=== PATIENT | male | born 1970 | race African-American/Black ===

== ENCOUNTER 2024-03-07 15:06 | Inpatient (IN) | payer OTHER ==
[2024-03-07 16:47] VITALS: BMI 23.8
[2024-03-07] MEDS ORDERED: guaiFENesin 600 MG TABLET.ER (FP) PO PRN (18:52)
[2024-03-07] MEDS ORDERED: LOPERAMIDE HCL 2 MG CAPSULE PO PRN (18:52)
[2024-03-07] MEDS ORDERED: hydrOXYzine PAMOATE 25 MG CAPSULE (FP) PO PRN (18:52)
[2024-03-07] MEDS ORDERED: MAG HYDROX/AL HYDROX/SIMETH 30 ML UNIT-DOSE CUP PO PRN (18:52)
[2024-03-07] MEDS ORDERED: DICYCLOMINE HCL 10 MG CAPSULE PO PRN (18:52)
[2024-03-07] MEDS ORDERED: BISMUTH SUBSALICYLATE 524 MG/30 ML PO PRN (18:52)
[2024-03-07] MEDS ORDERED: POLYETHYLENE GLYCOL (HEALTHYLAX) 3350 17 GM PACKET PO PRN (18:52)
[2024-03-07] MEDS ORDERED: NALOXONE (NYS OPIOID OVERDOSE PROGRAM) 4 MG/0.1 ML SPRAY NS PRN (18:52)
[2024-03-07] MEDS ORDERED: BENZOCAINE/MENTHOL (CHLORASEPTIC ) LOZENGE MM PRN (18:52)
[2024-03-07] MEDS ORDERED: IBUPROFEN 600 MG TABLET (FP) PO PRN (18:52)
[2024-03-07] MEDS ORDERED: ACETAMINOPHEN 325 MG TABLET (FP) PO PRN (18:52)
[2024-03-07] MEDS ORDERED: MAGNESIUM HYDROX 2400MG/30ML ORAL SUSPENSION 30 ML CUP PO PRN (18:52)
[2024-03-07] MEDS ORDERED: ONDANSETRON *ODT* 4 MG TABLET SL PRN (18:52)
[2024-03-07] MEDS ORDERED: BENZONATATE 200 MG CAPSULE PO PRN (18:52)
[2024-03-07] MEDS ORDERED: IBUPROFEN 400 MG TABLET (FP) PO PRN (18:52)
[2024-03-07] MEDS ORDERED: NALOXONE (NARCAN) HCL 4 MG/0.1 ML SPRAY NS PRN (18:52)
[2024-03-07] MEDS: FAMOTIDINE 20 MG TABLET PO SCH (21:15)
[2024-03-07] MEDS: diphenhydrAMINE HCL 25 MG CAPSULE (FP) PO PRN (21:16)
[2024-03-07] MEDS: METHOCARBAMOL 500 MG TABLET PO PRN (21:16)
[2024-03-07] MEDS: THIAMINE 100 MG TABLET PO SCH (21:16)
[2024-03-07] MEDS: MELATONIN 5 MG TABLETS PO SCH (21:17)
[2024-03-08] MEDS: PANTOPRAZOLE 40 MG TABLET PO SCH (10:14)
[2024-03-08] MEDS: predniSONE 20 MG TABLET (UD) PO SCH (10:15)
[2024-03-08] MEDS: PRENATAL VITAMINS W/ FOLIC ACID TABLET (FP) PO SCH (10:15)
[2024-03-08 11:09] LABS: HEMATOCRIT 42.7 % (35.4-49); HEMOGLOBIN 13.9 GM/dL (11.7-16.9); MCH 31.1 pg (25.7-33.7); MCHC 32.5 g/dl (32.0-35.9); MEAN CELL VOLUME 95.5 fl (80-96); MEAN PLT VOLUME 9.7 fl (7.5-11.1); PLATELET COUNT 186 10^3/uL (134-434); RBC 4.47 M/mm3 (4.00-5.60); RDW 13.9 % (11.9-15.9); WHITE BLOOD COUNT 7.9 K/mm3 (4.0-10.0)
[2024-03-08 11:15] LABS: CHLORIDE 110 mmol/L (98-107); POTASSIUM 4.5 mmol/L (3.5-5.1); SODIUM 142 mmol/L (136-145)
[2024-03-08 11:22] LABS: CALCIUM 9.2 mg/dL (8.5-10.1)
[2024-03-08 11:23] LABS: ALBUMIN 3.7 g/dl (3.4-5.0); ANION GAP 4 mmol/L (4-13); BLOOD UREA NITROGEN 12.1 mg/dL (7-18); CO2 28 mmol/L (21-32); GLUCOSE,RANDOM 89 mg/dL (74-106)
[2024-03-08 11:25] LABS: URIC ACID 3.4 mg/dL (2.6-7.2)
[2024-03-08 11:26] LABS: CREATININE 0.9 mg/dL (0.55-1.3); SGOT/AST 19 U/L (15-37); SGPT/ALT 32 U/L (13-61)
[2024-03-08 11:27] LABS: BILIRUBIN,TOTAL 0.3 mg/dL (0.2-1); TOT PROT 6.6 g/dl (6.4-8.2)
[2024-03-08 11:28] LABS: ALK PHOS 60 U/L (45-117)
[2024-03-08] MEDS ORDERED: FAMOTIDINE 20 MG TABLET PO PRN (13:24)
[2024-03-08 21:33] LABS: EPI CELLS 1 /uL (0-25.1); HYALINE CASTS 0 /uL (0-3.1); URINE APPEARANCE CLEAR; URINE BACTERIA 1 /uL (0-1359); URINE BILIRUBIN NEGATIVE (NEGATIVE); URINE COLOR YELLOW; URINE GLUCOSE (UA) NEGATIVE (NEGATIVE); URINE KETONE NEGATIVE (NEGATIVE); URINE LEUK ESTERASE NEGATIVE (NEGATIVE); URINE NITRITE NEGATIVE (NEGATIVE); URINE PROTEIN NEGATIVE (NEGATIVE); URINE RBC 18 /uL (0-23.9); URINE UROBILINOGEN 0.2 mg/dL (0.2-1.0); URINE WBC 1 /uL (0-25.8)
[2024-03-09 13:21] VITALS: BP 126/83; RESP 16; TEMP 97.7
[2024-03-09 13:43] VITALS: PULSE 81
== END 2024-03-09 13:53 | disposition home or self-care (01) | DRG 774 ==
LOC: YASAS 15:06 → Y3N 19:08 → UNDODISIN 03-09 13:53 → Y3N 03-09 13:54
PROVIDERS: ADMIT Allergy & Immunology; ATTEND Surgery
PROC: HZ2ZZZZ Detoxification Services for Substance Abuse Treatment (ICD-10-PCS; principal; 2024-03-07)
DX: F10.20 Alcohol dependence, uncomplicated (principal); F14.20 Cocaine dependence, uncomplicated; F17.210 Nicotine dependence, cigarettes, uncomplicated; F41.9 Anxiety disorder, unspecified; F32.A Depression, unspecified; G47.00 Insomnia, unspecified; K21.9 Gastro-esophageal reflux disease without esophagitis; M1A.9XX0 Chronic gout, unspecified, without tophus (tophi); Z56.0 Unemployment, unspecified; Z59.00 Homelessness unspecified
CPT/HCPCS: 36415; 80053; 80305; 80307; 81003; 84550; 85027; 86780; 87811; 93005; 93010

== ENCOUNTER 2024-03-09 14:07 | Inpatient (IN) | payer OTHER ==
[2024-03-09] MEDS ORDERED: LOPERAMIDE HCL 2 MG CAPSULE PO PRN (14:35)
[2024-03-09] MEDS ORDERED: guaiFENesin 600 MG TABLET.ER (FP) PO PRN (14:35)
[2024-03-09] MEDS ORDERED: BENZONATATE 200 MG CAPSULE PO PRN (14:35)
[2024-03-09] MEDS ORDERED: ACETAMINOPHEN 325 MG TABLET (FP) PO PRN (14:35)
[2024-03-09] MEDS ORDERED: BENZOCAINE/MENTHOL (CHLORASEPTIC ) LOZENGE MM PRN (14:35)
[2024-03-09] MEDS ORDERED: POLYETHYLENE GLYCOL (HEALTHYLAX) 3350 17 GM PACKET PO PRN (14:35)
[2024-03-09] MEDS ORDERED: IBUPROFEN 600 MG TABLET (FP) PO PRN (14:35)
[2024-03-09] MEDS ORDERED: NALOXONE HCL 0.4 MG/ML VIAL IVPUSH PRN (14:35)
[2024-03-09] MEDS ORDERED: MAGNESIUM HYDROX 2400MG/30ML ORAL SUSPENSION 30 ML CUP PO PRN (14:35)
[2024-03-09] MEDS ORDERED: NALOXONE (NARCAN) HCL 4 MG/0.1 ML SPRAY NS PRN (14:35)
[2024-03-09] MEDS ORDERED: hydrOXYzine PAMOATE 25 MG CAPSULE (FP) PO PRN (14:35)
[2024-03-09] MEDS ORDERED: IBUPROFEN 400 MG TABLET (FP) PO PRN (14:35)
[2024-03-09] MEDS: THIAMINE 100 MG TABLET PO SCH (21:33)
[2024-03-09] MEDS: MELATONIN 5 MG TABLETS PO SCH (21:34)
[2024-03-09] MEDS: METHOCARBAMOL 500 MG TABLET PO PRN (21:35)
[2024-03-10] MEDS: PANTOPRAZOLE 40 MG TABLET PO SCH (09:54)
[2024-03-10] MEDS: PRENATAL VITAMINS W/ FOLIC ACID TABLET (FP) PO SCH (09:56)
[2024-03-10] MEDS ORDERED: FAMOTIDINE 20 MG TABLET PO SCH (12:00)
[2024-03-12] MEDS: PHENYLEPHRINE HCL/COCOA BUTTER 1 EACH SUPP.RECT RC ONE (16:41)
[2024-03-12] MEDS: HYDROCORTISONE 2.5% TOPICAL CREAM 30 GM TUBE RC SCH (16:41)
[2024-03-14] MEDS: MAG HYDROX/AL HYDROX/SIMETH 30 ML UNIT-DOSE CUP PO PRN (19:11)
[2024-03-17] MEDS ORDERED: PANTOPRAZOLE 40 MG TABLET PO PRN (14:26)
[2024-03-18] MEDS: LIDOCAINE 4% PATCH TP SCH (14:56)
[2024-03-18] MEDS: LIDOCAINE PATCH REMOVAL MC SCH (21:18)
[2024-03-19] MEDS: HYDROCORTISONE 2.5% TOPICAL CREAM 30 GM TUBE RC PRN (01:40)
[2024-03-20] MEDS: METHYL SALICYLATE/MENTHOL 30 GM TUBE TP PRN (13:58)
[2024-03-20] MEDS: LIDOCAINE PATCH REMOVAL MC SCH (23:20)
[2024-03-21] MEDS: LIDOCAINE 5% TOPICAL PATCH TP SCH (10:04)
[2024-03-25] MEDS: MICONAZOLE NITRATE 71 GM POWDER TP SCH (16:35)
[2024-03-25] MEDS: TOLNAFTATE 1% POWDER 45 GM POW TP SCH (21:54)
[2024-03-26] MEDS: OFLOXACIN 0.3% OTIC SOLUTION 5 ML BOTTLE AS SCH (15:52)
[2024-03-27 07:11] VITALS: RESP 18
[2024-03-27] MEDS: TOLNAFTATE 1% POWDER 45 GM POW TP PRN (20:27)
[2024-04-04 06:49] VITALS: TEMP 97.5
[2024-04-06 06:56] VITALS: BP 132/79; PULSE 93
[2024-04-06] MEDS: NALOXONE (NYS OPIOID OVERDOSE PROGRAM) 4 MG/0.1 ML SPRAY NS SCH (09:45)
== END 2024-04-06 09:50 | disposition home or self-care (01) | DRG 772 ==
LOC: YASAS 14:07 → Y3NR 14:10 → Y3W 18:20 → Y5N 03-24 11:42
PROVIDERS: ADMIT Psychiatry & Neurology Pain Medicine; ATTEND Psychiatry & Neurology Pain Medicine
PROC: HZ42ZZZ Group Counseling for Substance Abuse Treatment, Cognitive-Behavioral (ICD-10-PCS; principal; 2024-03-09)
DX: F10.20 Alcohol dependence, uncomplicated (principal); F14.20 Cocaine dependence, uncomplicated; F17.210 Nicotine dependence, cigarettes, uncomplicated; F41.9 Anxiety disorder, unspecified; F32.A Depression, unspecified; G47.00 Insomnia, unspecified; K21.9 Gastro-esophageal reflux disease without esophagitis; B35.3 Tinea pedis; H92.01 Otalgia, right ear; R25.2 Cramp and spasm; Z96.643 Presence of artificial hip joint, bilateral; Z59.00 Homelessness unspecified
CPT/HCPCS: 80305